=== PATIENT | male | born 1995 | race Caucasian/White ===

== ENCOUNTER 2022-03-28 13:06 | Emergency (ER) | payer BC, SELFPAY ==
[2022-03-28] VITALS (93 sets, daily range): BP systolic 117–181; BP diastolic 55–106; PULSE 69–152; RESP 14–29; TEMP 36.1; O2SAT 95–100; BMI 21.1
--- NOTE | 2022-03-28 13:35 | ED.ABDPAIN ---
HPI - Abdominal Pain <KEVIN Ashford - Last Filed: 03/29/22 20:57> General Chief Complaint: Abdominal Pain Stated Complaint: sharp pain in upper ADB Time Seen by Provider: 03/28/22 13:34 Source: patient Mode of arrival: Ambulatory History of Present Illness HPI narrative: This is a 26-year-old who presents emergency department complaining of sharp pain in his epigastrium and esophagus after eating a chip today. Patient has history of esophageal strictures with dilations x3 in the past, states that it feels like a food bolus and this has happened to him before. He endorses history of drinking caffeine, and alcohol, denies tobacco use or substances other than marijuana. He denies any difficulty breathing, wheezing, shortness of breath or choking sensation. He denies any vomiting, recent fever or chills. States that he vomited x1 2 days ago in the middle of the night and he did not know why. He denies sensation of feeling bad today, states he drank coffee today and had chips with spinach dip and then felt severe pain in his stomach. States that it is still ongoing and his worst symptom. Has not had any vomiting, diarrhea, dysuria, denies cough or congestion. Endorses nausea. Esophageal dilation was approximately 1.5 years ago. Related Data Previous Rx's Medication Instructions Recorded hydrocodone 5 mg-acetaminophen 325 1 tab PO Q4-6H PRN pain #20 tabs 03/29/22 mg tablet ondansetron 4 mg disintegrating 4 mg PO TID-QID PRN nausea and 03/29/22 tablet vomiting #10 tabs Allergies Allergy/AdvReac Type Severity Reaction Status Date / Time No Known Drug Allergies Allergy Verified 03/28/22 13:32 Review of Systems <KEVIN Ashford - Last Filed: 03/29/22 20:57> Review of Systems ROS Unobtainable: All systems reviewed & are unremarkable except as noted in HPI and below Patient History <KEVIN Ashford - Last Filed: 03/29/22 20:57> Social History Smoking Status: Unknown if ever smoked Smoking Status: Unknown if ever smoked alcohol intake frequency: holidays/special occasions only Substance Use Type: does not use Exam <JESUS AshfordP - Last Filed: 03/29/22 20:57> Narrative Exam Narrative: Reviewed vitals signs and nursing notes. General: cooperative, comfortable, in no acute distress, well groomed, patient appears anxious, patient is fidgeting and tapping and occurs uncomfortable HEENT: symmetrical facial expressions, moist mucous membranes, conjunctival injection bilaterally, Cardiovascular: tachycardic rate and regular rhythm, no peripheral edema, warm extremities Respiratory: normal effort, able to speak in complete sentences, without wheezing, stridor, or abnormal breath sounds. No retractions or tachypnea. GI: abdomen soft, complains of pain in his epigastrium, abdomen is nontender to palpation unless deep palpation in the epigastrium , nondistended, without masses, rebound tenderness or exquisite tenderness with exam. Without flank pain MSK: moves all extremities, neurovascularly intact, no weakness, normal tone Skin: brisk capillary refill, without pallor or erythema Neuro: normal speech and cognition, A&O x3, ambulatory, clear speech Psych: mental status is grossly normal, congruent mood, normal affect, pleasant and cooperative Initial Vital Signs Initial Vital Signs: Vital Signs Temperature 96.9 F L 03/28/22 13:28 Pulse Rate 71 03/28/22 13:28 Respiratory Rate 15 03/28/22 13:28 Blood Pressure 147/88 H 03/28/22 13:28 Pulse Oximetry 100 03/28/22 13:28 Oxygen Delivery Method 03/28/22 13:28 <Adair Mims, DO - Last Filed: 03/30/22 05:50> Initial Vital Signs Initial Vital Signs: Vital Signs Temperature 96.9 F L 03/28/22 13:28 Pulse Rate 71 03/28/22 13:28 Respiratory Rate 15 03/28/22 13:28 Blood Pressure 147/88 H 03/28/22 13:28 Pulse Oximetry 100 03/28/22 13:28 Oxygen Delivery Method 03/28/22 13:28 <Ashleigh Mcrae DO - Last Filed: 04/01/22 07:13> Initial Vital Signs Initial Vital Signs: Vital Signs Temperature 96.9 F L 03/28/22 13:28 Pulse Rate 71 03/28/22 13:28 Respiratory Rate 15 03/28/22 13:28 Blood Pressure 147/88 H 03/28/22 13:28 Pulse Oximetry 100 03/28/22 13:28 Oxygen Delivery Method 03/28/22 13:28 Course <KEVIN Ashford - Last Filed: 03/29/22 20:57> Course Course Narrative: Radiologist called about patient's imaging with concern for thickening versus mass at the EG junction with small amount of air visible with no gross mediastinum. States that this is concerning for possible mass or esophageal perforation, phoned Dr. Gurrola for consult. One thousand six hundred Orders Ordered: Discontinued Medications Al Hydrox/Mg Hydrox/Simethicone 20 ml/ Lidocaine HCl 15 ml 0 ml PO NOW ONE Stop: 03/28/22 13:35 Last Admin: 03/28/22 13:47 Dose: 35 ml Documented By: BT Hydromorphone HCl (Hydromorphone 1 Mg Inj) 1 mg IV NOW ONE Stop: 03/28/22 14:30 Last Admin: 03/28/22 15:02 Dose: 1 mg Documented By: RB Hydromorphone HCl (Hydromorphone 0.5 Mg Inj) 0.5 mg IV NOW ONE Stop: 03/28/22 16:00 Last Admin: 03/28/22 16:21 Dose: 0.5 mg Documented By: RB Hydromorphone HCl (Hydromorphone 1 Mg Inj) 1 mg IV NOW ONE Stop: 03/28/22 17:19 Last Admin: 03/28/22 17:24 Dose: 1 mg Documented By: RB Hydromorphone HCl (Hydromorphone 0.5 Mg Inj) 0.5 mg IV NOW ONE Stop: 03/29/22 10:34 Last Admin: 03/29/22 11:05 Dose: 0.5 mg Documented By: KB Sodium Chloride (Normal Saline 0.9%) 1,000 mls @ 1,000 mls/hr IV BOLUS ONE Stop: 03/28/22 15:28 Last Infusion: 03/28/22 17:59 Dose: 0 mls/hr Documented By: Admin: 03/28/22 15:03 Dose: 1,000 mls/hr Documented By: RB Piperacillin Sod/Tazobactam (Sod 4.5 gm/ Sodium Chloride) 100 mls @ 200 mls/hr IV NOW ONE Stop: 03/28/22 16:10 Last Infusion: 03/28/22 17:10 Dose: 0 mls/hr Documented By: Admin: 03/28/22 16:20 Dose: 200 mls/hr Documented By: RB Sodium Chloride (Normal Saline 0.9%) 1,000 mls @ 1,000 mls/hr IV BOLUS ONE Stop: 03/28/22 18:17 Last Infusion: 03/28/22 18:04 Dose: 0 mls/hr Documented By: Infusion: 03/28/22 18:02 Dose: 0 mls/hr Documented By: Admin: 03/28/22 17:28 Dose: 1,000 mls/hr Documented By: RB Lactated Ringer's (Lactated Ringers) 1,000 mls @ 1,000 mls/hr IV BOLUS ONE Stop: 03/28/22 18:42 Last Infusion: 03/28/22 18:45 Dose: 0 mls/hr Documented By: Admin: 03/28/22 18:03 Dose: 1,000 mls/hr Documented By: RB Vancomycin HCl/Dextrose (Vancomycin) 1,500 mg in 300 mls @ 200 mls/hr IV NOW ONE Stop: 03/28/22 19:36 Last Infusion: 03/28/22 20:17 Dose: 0 mls/hr Documented By: Admin: 03/28/22 18:39 Dose: 200 mls/hr Documented By: RB Fluconazole (Diflucan) 200 mg in 100 mls @ 100 mls/hr IV NOW ONE Stop: 03/28/22 19:08 Last Infusion: 03/28/22 20:02 Dose: 0 mls/hr Documented By: Admin: 03/28/22 19:02 Dose: 100 mls/hr Documented By: RB Sodium Chloride (Normal Saline 0.9%) 1,000 mls @ 100 mls/hr IV CONT DANIEL Last Infusion: 03/29/22 13:00 Dose: 0 mls/hr Documented By: Admin: 03/29/22 05:58 Dose: 100 mls/hr Documented By: Infusion: 03/29/22 05:20 Dose: 100 mls/hr Documented By: Admin: 03/28/22 19:20 Dose: 100 mls/hr Documented By: RB Ketorolac Tromethamine (Ketorolac 30 Mg/Ml Vial) 15 mg IV NOW ONE Stop: 03/28/22 15:52 Last Admin: 03/28/22 16:21 Dose: 15 mg Documented By: RB Lorazepam (Lorazepam 2 Mg/Ml Inj) 1 mg IV NOW ONE Stop: 03/28/22 14:00 Last Admin: 03/28/22 15:02 Dose: 1 mg Documented By: RB Lorazepam (Lorazepam 2 Mg/Ml Inj) 1 mg IV NOW ONE Stop: 03/28/22 17:51 Last Admin: 03/28/22 17:58 Dose: 1 mg Documented By: RB Ondansetron HCl (Ondansetron 4 Mg/2 Ml Inj) 4 mg IV NOW ONE Stop: 03/28/22 15:20 Last Admin: 03/28/22 15:30 Dose: 4 mg Documented By: RB Ondansetron HCl (Ondansetron 4 Mg/2 Ml Inj) 4 mg IV NOW ONE Stop: 03/29/22 10:34 Last Admin: 03/29/22 11:05 Dose: 4 mg Documented By: RAFAEL Pantoprazole Sodium (Pantoprazole 40 Mg Vial) 40 mg IV NOW ONE Stop: 03/28/22 14:00 Last Admin: 03/28/22 15:02 Dose: 40 mg Documented By: RB Reevaluation(s) Reevaluation #1: Checked on patient after he received the GI cocktail and p.o. Ativan, patient states he has no relief from his discomfort, is fidgeting, telling staff having severe pain. Dilaudid, IV fluids IV placement with lab work being drawn currently. Ultrasound room at bedside for evaluation. Patient is not choking, no difficulty breathing, no vomiting. Time: 14:30 Reevaluation #2: Patient has nausea, ordered Zofran, states that his pain is starting to feel better after Dilaudid, IV fluids running, patient has a marked leukocytosis of 15.2 with a left shift, lactate of 2.2, lipase is normal and liver enzymes are normal. Time: :22 Vital Signs Vital signs: Vital Signs - 8 hr 03/29/22 04:40 03/29/22 04:40 03/29/22 04:50 Pulse Rate 90 Respiratory Rate 21 Blood Pressure 125/64 103/53 L Pulse Oximetry 95 Oxygen Delivery Method 03/29/22 04:50 03/29/22 05:00 03/29/22 05:00 Pulse Rate 89 88 Respiratory Rate 19 20 Blood Pressure 97/53 L Pulse Oximetry 96 96 Oxygen Delivery Method 03/29/22 05:10 03/29/22 05:10 03/29/22 05:15 Pulse Rate 97 H Respiratory Rate 21 Blood Pressure 97/50 L 115/59 L Pulse Oximetry 96 Oxygen Delivery Method 03/29/22 05:15 03/29/22 05:20 03/29/22 05:20 Pulse Rate 91 H 92 H Respiratory Rate 20 13 Blood Pressure 118/60 Pulse Oximetry 97 96 Oxygen Delivery Method 03/29/22 05:30 03/29/22 05:30 03/29/22 05:40 Pulse Rate 85 Respiratory Rate 11 L Blood Pressure 121/60 124/60 Pulse Oximetry 96 Oxygen Delivery Method 03/29/22 05:40 03/29/22 05:50 03/29/22 05:50 Pulse Rate 84 86 Respiratory Rate 19 20 Blood Pressure 123/59 L Pulse Oximetry 97 96 Oxygen Delivery Method 03/29/22 06:00 03/29/22 06:00 03/29/22 06:10 Pulse Rate 81 Respiratory Rate 16 Blood Pressure 117/62 123/61 Pulse Oximetry 96 Oxygen Delivery Method 03/29/22 06:10 03/29/22 06:20 03/29/22 06:20 Pulse Rate 85 85 Respiratory Rate 20 21 Blood Pressure 122/63 Pulse Oximetry 96 96 Oxygen Delivery Method 03/29/22 06:30 03/29/22 06:30 03/29/22 06:40 Pulse Rate 83 94 H Respiratory Rate 21 17 Blood Pressure 118/61 Pulse Oximetry 96 97 Oxygen Delivery Method 03/29/22 06:41 03/29/22 06:41 03/29/22 06:50 Pulse Rate 79 Respiratory Rate 18 Blood Pressure 129/60 119/59 L Pulse Oximetry 97 Oxygen Delivery Method 03/29/22 06:50 03/29/22 07:00 03/29/22 07:00 Pulse Rate 79 81 Respiratory Rate 22 20 Blood Pressure 118/59 L Pulse Oximetry 96 96 Oxygen Delivery Method 03/29/22 07:10 03/29/22 07:10 03/29/22 07:20 Pulse Rate 98 H Respiratory Rate 20 Blood Pressure 125/57 L 122/56 L Pulse Oximetry 97 Oxygen Delivery Method 03/29/22 07:20 03/29/22 07:30 03/29/22 07:30 Pulse Rate 92 H 84 Respiratory Rate 19 18 Blood Pressure 127/60 Pulse Oximetry 96 97 Oxygen Delivery Method 03/29/22 07:40 03/29/22 07:40 03/29/22 07:50 Pulse Rate 82 Respiratory Rate 20 Blood Pressure 123/59 L 125/58 L Pulse Oximetry 97 Oxygen Delivery Method 03/29/22 07:50 03/29/22 08:00 03/29/22 08:00 Pulse Rate 79 80 Respiratory Rate 20 19 Blood Pressure 126/57 L Pulse Oximetry 97 97 Oxygen Delivery Method 03/29/22 08:10 03/29/22 08:10 03/29/22 08:20 Pulse Rate 81 90 Respiratory Rate 19 21 Blood Pressure 128/58 L Pulse Oximetry 97 98 Oxygen Delivery Method 03/29/22 08:40 03/29/22 08:50 03/29/22 09:00 Pulse Rate 87 95 H Respiratory Rate 20 Blood Pressure 126/70 Pulse Oximetry 97 97 Oxygen Delivery Method 03/29/22 09:00 03/29/22 09:10 03/29/22 09:10 Pulse Rate 88 91 H Respiratory Rate 19 23 Blood Pressure 124/72 Pulse Oximetry 97 96 Oxygen Delivery Method 03/29/22 09:20 03/29/22 09:20 03/29/22 09:30 Pulse Rate 88 Respiratory Rate 21 Blood Pressure 126/68 125/72 Pulse Oximetry 97 Oxygen Delivery Method 03/29/22 09:30 03/29/22 09:40 03/29/22 09:40 Pulse Rate 88 85 Respiratory Rate 22 25 H Blood Pressure 123/69 Pulse Oximetry 96 97 Oxygen Delivery Method 03/29/22 09:50 03/29/22 09:50 03/29/22 10:00 Pulse Rate 83 Respiratory Rate 20 Blood Pressure 130/69 119/66 Pulse Oximetry 96 Oxygen Delivery Method 03/29/22 10:00 03/29/22 10:10 03/29/22 10:10 Pulse Rate 84 89 Respiratory Rate 21 21 Blood Pressure 121/65 Pulse Oximetry 96 97 Oxygen Delivery Method 03/29/22 10:20 03/29/22 10:20 03/29/22 10:30 Pulse Rate 78 Respiratory Rate 21 Blood Pressure 121/65 119/71 Pulse Oximetry 98 Oxygen Delivery Method 03/29/22 10:30 03/29/22 10:40 03/29/22 10:40 Pulse Rate 86 85 Respiratory Rate 20 23 Blood Pressure 127/77 Pulse Oximetry 97 97 Oxygen Delivery Method 03/29/22 10:50 03/29/22 10:50 03/29/22 11:00 Pulse Rate 84 Respiratory Rate 26 H Blood Pressure 127/69 124/61 Pulse Oximetry 97 Oxygen Delivery Method 03/29/22 11:00 03/29/22 11:10 03/29/22 11:10 Pulse Rate 84 88 Respiratory Rate 17 18 Blood Pressure 126/70 Pulse Oximetry 96 96 Oxygen Delivery Method 03/29/22 11:20 03/29/22 11:20 03/29/22 11:30 Pulse Rate 82 Respiratory Rate 13 Blood Pressure 128/63 121/60 Pulse Oximetry 96 Oxygen Delivery Method Room Air 03/29/22 11:30 03/29/22 11:40 03/29/22 11:40 Pulse Rate 81 82 Respiratory Rate 18 17 Blood Pressure 114/59 L Pulse Oximetry 96 95 Oxygen Delivery Method Room Air 03/29/22 11:50 03/29/22 11:50 Pulse Rate 79 Respiratory Rate 16 Blood Pressure 119/60 Pulse Oximetry 96 Oxygen Delivery Method <Adair Mims DO - Last Filed: 03/30/22 05:50> Orders Ordered: Discontinued Medications Al Hydrox/Mg Hydrox/Simethicone 20 ml/ Lidocaine HCl 15 ml 0 ml PO NOW ONE Stop: 03/28/22 13:35 Last Admin: 03/28/22 13:47 Dose: 35 ml Documented By: BT Hydromorphone HCl (Hydromorphone 1 Mg Inj) 1 mg IV NOW ONE Stop: 03/28/22 14:30 Last Admin: 03/28/22 15:02 Dose: 1 mg Documented By: RB Hydromorphone HCl (Hydromorphone 0.5 Mg Inj) 0.5 mg IV NOW ONE Stop: 03/28/22 16:00 Last Admin: 03/28/22 16:21 Dose: 0.5 mg Documented By: RB Hydromorphone HCl (Hydromorphone 1 Mg Inj) 1 mg IV NOW ONE Stop: 03/28/22 17:19 Last Admin: 03/28/22 17:24 Dose: 1 mg Documented By: RB Hydromorphone HCl (Hydromorphone 0.5 Mg Inj) 0.5 mg IV NOW ONE Stop: 03/29/22 10:34 Last Admin: 03/29/22 11:05 Dose: 0.5 mg Documented By: RAFAEL Sodium Chloride (Normal Saline 0.9%) 1,000 mls @ 1,000 mls/hr IV BOLUS ONE Stop: 03/28/22 15:28 Last Infusion: 03/28/22 17:59 Dose: 0 mls/hr Documented By: Admin: 03/28/22 15:03 Dose: 1,000 mls/hr Documented By: RB Piperacillin Sod/Tazobactam (Sod 4.5 gm/ Sodium Chloride) 100 mls @ 200 mls/hr IV NOW ONE Stop: 03/28/22 16:10 Last Infusion: 03/28/22 17:10 Dose: 0 mls/hr Documented By: Admin: 03/28/22 16:20 Dose: 200 mls/hr Documented By: RB Sodium Chloride (Normal Saline 0.9%) 1,000 mls @ 1,000 mls/hr IV BOLUS ONE Stop: 03/28/22 18:17 Last Infusion: 03/28/22 18:04 Dose: 0 mls/hr Documented By: Infusion: 03/28/22 18:02 Dose: 0 mls/hr Documented By: Admin: 03/28/22 17:28 Dose: 1,000 mls/hr Documented By: RB Lactated Ringer's (Lactated Ringers) 1,000 mls @ 1,000 mls/hr IV BOLUS ONE Stop: 03/28/22 18:42 Last Infusion: 03/28/22 18:45 Dose: 0 mls/hr Documented By: Admin: 03/28/22 18:03 Dose: 1,000 mls/hr Documented By: RB Vancomycin HCl/Dextrose (Vancomycin) 1,500 mg in 300 mls @ 200 mls/hr IV NOW ONE Stop: 03/28/22 19:36 Last Infusion: 03/28/22 20:17 Dose: 0 mls/hr Documented By: Admin: 03/28/22 18:39 Dose: 200 mls/hr Documented By: RB Fluconazole (Diflucan) 200 mg in 100 mls @ 100 mls/hr IV NOW ONE Stop: 03/28/22 19:08 Last Infusion: 03/28/22 20:02 Dose: 0 mls/hr Documented By: Admin: 03/28/22 19:02 Dose: 100 mls/hr Documented By: EVITA Sodium Chloride (Normal Saline 0.9%) 1,000 mls @ 100 mls/hr IV CONT DANIEL Last Infusion: 03/29/22 13:00 Dose: 0 mls/hr Documented By: Admin: 03/29/22 05:58 Dose: 100 mls/hr Documented By: Infusion: 03/29/22 05:20 Dose: 100 mls/hr Documented By: Admin: 03/28/22 19:20 Dose: 100 mls/hr Documented By: EVITA Ketorolac Tromethamine (Ketorolac 30 Mg/Ml Vial) 15 mg IV NOW ONE Stop: 03/28/22 15:52 Last Admin: 03/28/22 16:21 Dose: 15 mg Documented By: RB Lorazepam (Lorazepam 2 Mg/Ml Inj) 1 mg IV NOW ONE Stop: 03/28/22 14:00 Last Admin: 03/28/22 15:02 Dose: 1 mg Documented By: RB Lorazepam (Lorazepam 2 Mg/Ml Inj) 1 mg IV NOW ONE Stop: 03/28/22 17:51 Last Admin: 03/28/22 17:58 Dose: 1 mg Documented By: RB Ondansetron HCl (Ondansetron 4 Mg/2 Ml Inj) 4 mg IV NOW ONE Stop: 03/28/22 15:20 Last Admin: 03/28/22 15:30 Dose: 4 mg Documented By: EVITA Ondansetron HCl (Ondansetron 4 Mg/2 Ml Inj) 4 mg IV NOW ONE Stop: 03/29/22 10:34 Last Admin: 03/29/22 11:05 Dose: 4 mg Documented By: RAFAEL Pantoprazole Sodium (Pantoprazole 40 Mg Vial) 40 mg IV NOW ONE Stop: 03/28/22 14:00 Last Admin: 03/28/22 15:02 Dose: 40 mg Documented By: RB Vital Signs Vital signs: Vital Signs - 8 hr 03/29/22 04:40 03/29/22 04:40 03/29/22 04:50 Pulse Rate 90 Respiratory Rate 21 Blood Pressure 125/64 103/53 L Pulse Oximetry 95 Oxygen Delivery Method 03/29/22 04:50 03/29/22 05:00 03/29/22 05:00 Pulse Rate 89 88 Respiratory Rate 19 20 Blood Pressure 97/53 L Pulse Oximetry 96 96 Oxygen Delivery Method 03/29/22 05:10 03/29/22 05:10 03/29/22 05:15 Pulse Rate 97 H Respiratory Rate 21 Blood Pressure 97/50 L 115/59 L Pulse Oximetry 96 Oxygen Delivery Method 03/29/22 05:15 03/29/22 05:20 03/29/22 05:20 Pulse Rate 91 H 92 H Respiratory Rate 20 13 Blood Pressure 118/60 Pulse Oximetry 97 96 Oxygen Delivery Method 03/29/22 05:30 03/29/22 05:30 03/29/22 05:40 Pulse Rate 85 Respiratory Rate 11 L Blood Pressure 121/60 124/60 Pulse Oximetry 96 Oxygen Delivery Method 03/29/22 05:40 03/29/22 05:50 03/29/22 05:50 Pulse Rate 84 86 Respiratory Rate 19 20 Blood Pressure 123/59 L Pulse Oximetry 97 96 Oxygen Delivery Method 03/29/22 06:00 03/29/22 06:00 03/29/22 06:10 Pulse Rate 81 Respiratory Rate 16 Blood Pressure 117/62 123/61 Pulse Oximetry 96 Oxygen Delivery Method 03/29/22 06:10 03/29/22 06:20 03/29/22 06:20 Pulse Rate 85 85 Respiratory Rate 20 21 Blood Pressure 122/63 Pulse Oximetry 96 96 Oxygen Delivery Method 03/29/22 06:30 03/29/22 06:30 03/29/22 06:40 Pulse Rate 83 94 H Respiratory Rate 21 17 Blood Pressure 118/61 Pulse Oximetry 96 97 Oxygen Delivery Method 03/29/22 06:41 03/29/22 06:41 03/29/22 06:50 Pulse Rate 79 Respiratory Rate 18 Blood Pressure 129/60 119/59 L Pulse Oximetry 97 Oxygen Delivery Method 03/29/22 06:50 03/29/22 07:00 03/29/22 07:00 Pulse Rate 79 81 Respiratory Rate 22 20 Blood Pressure 118/59 L Pulse Oximetry 96 96 Oxygen Delivery Method 03/29/22 07:10 03/29/22 07:10 03/29/22 07:20 Pulse Rate 98 H Respiratory Rate 20 Blood Pressure 125/57 L 122/56 L Pulse Oximetry 97 Oxygen Delivery Method 03/29/22 07:20 03/29/22 07:30 03/29/22 07:30 Pulse Rate 92 H 84 Respiratory Rate 19 18 Blood Pressure 127/60 Pulse Oximetry 96 97 Oxygen Delivery Method 03/29/22 07:40 03/29/22 07:40 03/29/22 07:50 Pulse Rate 82 Respiratory Rate 20 Blood Pressure 123/59 L 125/58 L Pulse Oximetry 97 Oxygen Delivery Method 03/29/22 07:50 03/29/22 08:00 03/29/22 08:00 Pulse Rate 79 80 Respiratory Rate 20 19 Blood Pressure 126/57 L Pulse Oximetry 97 97 Oxygen Delivery Method 03/29/22 08:10 03/29/22 08:10 03/29/22 08:20 Pulse Rate 81 90 Respiratory Rate 19 21 Blood Pressure 128/58 L Pulse Oximetry 97 98 Oxygen Delivery Method 03/29/22 08:40 03/29/22 08:50 03/29/22 09:00 Pulse Rate 87 95 H Respiratory Rate 20 Blood Pressure 126/70 Pulse Oximetry 97 97 Oxygen Delivery Method 03/29/22 09:00 03/29/22 09:10 03/29/22 09:10 Pulse Rate 88 91 H Respiratory Rate 19 23 Blood Pressure 124/72 Pulse Oximetry 97 96 Oxygen Delivery Method 03/29/22 09:20 03/29/22 09:20 03/29/22 09:30 Pulse Rate 88 Respiratory Rate 21 Blood Pressure 126/68 125/72 Pulse Oximetry 97 Oxygen Delivery Method 03/29/22 09:30 03/29/22 09:40 03/29/22 09:40 Pulse Rate 88 85 Respiratory Rate 22 25 H Blood Pressure 123/69 Pulse Oximetry 96 97 Oxygen Delivery Method 03/29/22 09:50 03/29/22 09:50 03/29/22 10:00 Pulse Rate 83 Respiratory Rate 20 Blood Pressure 130/69 119/66 Pulse Oximetry 96 Oxygen Delivery Method 03/29/22 10:00 03/29/22 10:10 03/29/22 10:10 Pulse Rate 84 89 Respiratory Rate 21 21 Blood Pressure 121/65 Pulse Oximetry 96 97 Oxygen Delivery Method 03/29/22 10:20 03/29/22 10:20 03/29/22 10:30 Pulse Rate 78 Respiratory Rate 21 Blood Pressure 121/65 119/71 Pulse Oximetry 98 Oxygen Delivery Method 03/29/22 10:30 03/29/22 10:40 03/29/22 10:40 Pulse Rate 86 85 Respiratory Rate 20 23 Blood Pressure 127/77 Pulse Oximetry 97 97 Oxygen Delivery Method 03/29/22 10:50 03/29/22 10:50 03/29/22 11:00 Pulse Rate 84 Respiratory Rate 26 H Blood Pressure 127/69 124/61 Pulse Oximetry 97 Oxygen Delivery Method 03/29/22 11:00 03/29/22 11:10 03/29/22 11:10 Pulse Rate 84 88 Respiratory Rate 17 18 Blood Pressure 126/70 Pulse Oximetry 96 96 Oxygen Delivery Method 03/29/22 11:20 03/29/22 11:20 03/29/22 11:30 Pulse Rate 82 Respiratory Rate 13 Blood Pressure 128/63 121/60 Pulse Oximetry 96 Oxygen Delivery Method Room Air 03/29/22 11:30 03/29/22 11:40 03/29/22 11:40 Pulse Rate 81 82 Respiratory Rate 18 17 Blood Pressure 114/59 L Pulse Oximetry 96 95 Oxygen Delivery Method Room Air 03/29/22 11:50 03/29/22 11:50 Pulse Rate 79 Respiratory Rate 16 Blood Pressure 119/60 Pulse Oximetry 96 Oxygen Delivery Method <Ashleigh Mcrae, - Last Filed: 04/01/22 07:13> Orders Ordered: Discontinued Medications Al Hydrox/Mg Hydrox/Simethicone 20 ml/ Lidocaine HCl 15 ml 0 ml PO NOW ONE Stop: 03/28/22 13:35 Last Admin: 03/28/22 13:47 Dose: 35 ml Documented By: BT Hydromorphone HCl (Hydromorphone 1 Mg Inj) 1 mg IV NOW ONE Stop: 03/28/22 14:30 Last Admin: 03/28/22 15:02 Dose: 1 mg Documented By: RB Hydromorphone HCl (Hydromorphone 0.5 Mg Inj) 0.5 mg IV NOW ONE Stop: 03/28/22 16:00 Last Admin: 03/28/22 16:21 Dose: 0.5 mg Documented By: RB Hydromorphone HCl (Hydromorphone 1 Mg Inj) 1 mg IV NOW ONE Stop: 03/28/22 17:19 Last Admin: 03/28/22 17:24 Dose: 1 mg Documented By: RB Hydromorphone HCl (Hydromorphone 0.5 Mg Inj) 0.5 mg IV NOW ONE Stop: 03/29/22 10:34 Last Admin: 03/29/22 11:05 Dose: 0.5 mg Documented By: RAFAEL Sodium Chloride (Normal Saline 0.9%) 1,000 mls @ 1,000 mls/hr IV BOLUS ONE Stop: 03/28/22 15:28 Last Infusion: 03/28/22 17:59 Dose: 0 mls/hr Documented By: Admin: 03/28/22 15:03 Dose: 1,000 mls/hr Documented By: RB Piperacillin Sod/Tazobactam (Sod 4.5 gm/ Sodium Chloride) 100 mls @ 200 mls/hr IV NOW ONE Stop: 03/28/22 16:10 Last Infusion: 03/28/22 17:10 Dose: 0 mls/hr Documented By: Admin: 03/28/22 16:20 Dose: 200 mls/hr Documented By: RB Sodium Chloride (Normal Saline 0.9%) 1,000 mls @ 1,000 mls/hr IV BOLUS ONE Stop: 03/28/22 18:17 Last Infusion: 03/28/22 18:04 Dose: 0 mls/hr Documented By: Infusion: 03/28/22 18:02 Dose: 0 mls/hr Documented By: Admin: 03/28/22 17:28 Dose: 1,000 mls/hr Documented By: RB Lactated Ringer's (Lactated Ringers) 1,000 mls @ 1,000 mls/hr IV BOLUS ONE Stop: 03/28/22 18:42 Last Infusion: 03/28/22 18:45 Dose: 0 mls/hr Documented By: Admin: 03/28/22 18:03 Dose: 1,000 mls/hr Documented By: RB Vancomycin HCl/Dextrose (Vancomycin) 1,500 mg in 300 mls @ 200 mls/hr IV NOW ONE Stop: 03/28/22 19:36 Last Infusion: 03/28/22 20:17 Dose: 0 mls/hr Documented By: Admin: 03/28/22 18:39 Dose: 200 mls/hr Documented By: RB Fluconazole (Diflucan) 200 mg in 100 mls @ 100 mls/hr IV NOW ONE Stop: 03/28/22 19:08 Last Infusion: 03/28/22 20:02 Dose: 0 mls/hr Documented By: Admin: 03/28/22 19:02 Dose: 100 mls/hr Documented By: RB Sodium Chloride (Normal Saline 0.9%) 1,000 mls @ 100 mls/hr IV CONT DANIEL Last Infusion: 03/29/22 13:00 Dose: 0 mls/hr Documented By: Admin: 03/29/22 05:58 Dose: 100 mls/hr Documented By: Infusion: 03/29/22 05:20 Dose: 100 mls/hr Documented By: Admin: 03/28/22 19:20 Dose: 100 mls/hr Documented By: RB Ketorolac Tromethamine (Ketorolac 30 Mg/Ml Vial) 15 mg IV NOW ONE Stop: 03/28/22 15:52 Last Admin: 03/28/22 16:21 Dose: 15 mg Documented By: RB Lorazepam (Lorazepam 2 Mg/Ml Inj) 1 mg IV NOW ONE Stop: 03/28/22 14:00 Last Admin: 03/28/22 15:02 Dose: 1 mg Documented By: RB Lorazepam (Lorazepam 2 Mg/Ml Inj) 1 mg IV NOW ONE Stop: 03/28/22 17:51 Last Admin: 03/28/22 17:58 Dose: 1 mg Documented By: RB Ondansetron HCl (Ondansetron 4 Mg/2 Ml Inj) 4 mg IV NOW ONE Stop: 03/28/22 15:20 Last Admin: 03/28/22 15:30 Dose: 4 mg Documented By: RB Ondansetron HCl (Ondansetron 4 Mg/2 Ml Inj) 4 mg IV NOW ONE Stop: 03/29/22 10:34 Last Admin: 03/29/22 11:05 Dose: 4 mg Documented By: RAFAEL Pantoprazole Sodium (Pantoprazole 40 Mg Vial) 40 mg IV NOW ONE Stop: 03/28/22 14:00 Last Admin: 03/28/22 15:02 Dose: 40 mg Documented By: RB Vital Signs Vital signs: Vital Signs - 8 hr 03/29/22 04:40 03/29/22 04:40 03/29/22 04:50 Pulse Rate 90 Respiratory Rate 21 Blood Pressure 125/64 103/53 L Pulse Oximetry 95 Oxygen Delivery Method 03/29/22 04:50 03/29/22 05:00 03/29/22 05:00 Pulse Rate 89 88 Respiratory Rate 19 20 Blood Pressure 97/53 L Pulse Oximetry 96 96 Oxygen Delivery Method 03/29/22 05:10 03/29/22 05:10 03/29/22 05:15 Pulse Rate 97 H Respiratory Rate 21 Blood Pressure 97/50 L 115/59 L Pulse Oximetry 96 Oxygen Delivery Method 03/29/22 05:15 03/29/22 05:20 03/29/22 05:20 Pulse Rate 91 H 92 H Respiratory Rate 20 13 Blood Pressure 118/60 Pulse Oximetry 97 96 Oxygen Delivery Method 03/29/22 05:30 03/29/22 05:30 03/29/22 05:40 Pulse Rate 85 Respiratory Rate 11 L Blood Pressure 121/60 124/60 Pulse Oximetry 96 Oxygen Delivery Method 03/29/22 05:40 03/29/22 05:50 03/29/22 05:50 Pulse Rate 84 86 Respiratory Rate 19 20 Blood Pressure 123/59 L Pulse Oximetry 97 96 Oxygen Delivery Method 03/29/22 06:00 03/29/22 06:00 03/29/22 06:10 Pulse Rate 81 Respiratory Rate 16 Blood Pressure 117/62 123/61 Pulse Oximetry 96 Oxygen Delivery Method 03/29/22 06:10 03/29/22 06:20 03/29/22 06:20 Pulse Rate 85 85 Respiratory Rate 20 21 Blood Pressure 122/63 Pulse Oximetry 96 96 Oxygen Delivery Method 03/29/22 06:30 03/29/22 06:30 03/29/22 06:40 Pulse Rate 83 94 H Respiratory Rate 21 17 Blood Pressure 118/61 Pulse Oximetry 96 97 Oxygen Delivery Method 03/29/22 06:41 03/29/22 06:41 03/29/22 06:50 Pulse Rate 79 Respiratory Rate 18 Blood Pressure 129/60 119/59 L Pulse Oximetry 97 Oxygen Delivery Method 03/29/22 06:50 03/29/22 07:00 03/29/22 07:00 Pulse Rate 79 81 Respiratory Rate 22 20 Blood Pressure 118/59 L Pulse Oximetry 96 96 Oxygen Delivery Method 03/29/22 07:10 03/29/22 07:10 03/29/22 07:20 Pulse Rate 98 H Respiratory Rate 20 Blood Pressure 125/57 L 122/56 L Pulse Oximetry 97 Oxygen Delivery Method 03/29/22 07:20 03/29/22 07:30 03/29/22 07:30 Pulse Rate 92 H 84 Respiratory Rate 19 18 Blood Pressure 127/60 Pulse Oximetry 96 97 Oxygen Delivery Method 03/29/22 07:40 03/29/22 07:40 03/29/22 07:50 Pulse Rate 82 Respiratory Rate 20 Blood Pressure 123/59 L 125/58 L Pulse Oximetry 97 Oxygen Delivery Method 03/29/22 07:50 03/29/22 08:00 03/29/22 08:00 Pulse Rate 79 80 Respiratory Rate 20 19 Blood Pressure 126/57 L Pulse Oximetry 97 97 Oxygen Delivery Method 03/29/22 08:10 03/29/22 08:10 03/29/22 08:20 Pulse Rate 81 90 Respiratory Rate 19 21 Blood Pressure 128/58 L Pulse Oximetry 97 98 Oxygen Delivery Method 03/29/22 08:40 03/29/22 08:50 03/29/22 09:00 Pulse Rate 87 95 H Respiratory Rate 20 Blood Pressure 126/70 Pulse Oximetry 97 97 Oxygen Delivery Method 03/29/22 09:00 03/29/22 09:10 03/29/22 09:10 Pulse Rate 88 91 H Respiratory Rate 19 23 Blood Pressure 124/72 Pulse Oximetry 97 96 Oxygen Delivery Method 03/29/22 09:20 03/29/22 09:20 03/29/22 09:30 Pulse Rate 88 Respiratory Rate 21 Blood Pressure 126/68 125/72 Pulse Oximetry 97 Oxygen Delivery Method 03/29/22 09:30 03/29/22 09:40 03/29/22 09:40 Pulse Rate 88 85 Respiratory Rate 22 25 H Blood Pressure 123/69 Pulse Oximetry 96 97 Oxygen Delivery Method 03/29/22 09:50 03/29/22 09:50 03/29/22 10:00 Pulse Rate 83 Respiratory Rate 20 Blood Pressure 130/69 119/66 Pulse Oximetry 96 Oxygen Delivery Method 03/29/22 10:00 03/29/22 10:10 03/29/22 10:10 Pulse Rate 84 89 Respiratory Rate 21 21 Blood Pressure 121/65 Pulse Oximetry 96 97 Oxygen Delivery Method 03/29/22 10:20 03/29/22 10:20 03/29/22 10:30 Pulse Rate 78 Respiratory Rate 21 Blood Pressure 121/65 119/71 Pulse Oximetry 98 Oxygen Delivery Method 03/29/22 10:30 03/29/22 10:40 03/29/22 10:40 Pulse Rate 86 85 Respiratory Rate 20 23 Blood Pressure 127/77 Pulse Oximetry 97 97 Oxygen Delivery Method 03/29/22 10:50 03/29/22 10:50 03/29/22 11:00 Pulse Rate 84 Respiratory Rate 26 H Blood Pressure 127/69 124/61 Pulse Oximetry 97 Oxygen Delivery Method 03/29/22 11:00 03/29/22 11:10 03/29/22 11:10 Pulse Rate 84 88 Respiratory Rate 17 18 Blood Pressure 126/70 Pulse Oximetry 96 96 Oxygen Delivery Method 03/29/22 11:20 03/29/22 11:20 03/29/22 11:30 Pulse Rate 82 Respiratory Rate 13 Blood Pressure 128/63 121/60 Pulse Oximetry 96 Oxygen Delivery Method Room Air 03/29/22 11:30 03/29/22 11:40 03/29/22 11:40 Pulse Rate 81 82 Respiratory Rate 18 17 Blood Pressure 114/59 L Pulse Oximetry 96 95 Oxygen Delivery Method Room Air 03/29/22 11:50 03/29/22 11:50 Pulse Rate 79 Respiratory Rate 16 Blood Pressure 119/60 Pulse Oximetry 96 Oxygen Delivery Method MDM - Abdominal Pain <Dominga Lima [facility] - Last Filed: 03/29/22 20:57> Lab Data Result diagrams: 03/28/22 18:15 03/28/22 18:15 Labs: Lab Results 03/28/22 03/28/22 03/28/22 Range/Units 11:45 11:45 11:45 WBC 15.2 H (4.5-11.0) X10^3/uL RBC 5.72 (4.5-5.9) X10^6/uL Hgb 16.9 (13.5-17.5) g/dL Hct 49.4 (41-53) % MCV 86.4 (80-100) fL MCH 29.5 (26-34) PG MCHC 34.2 (30-36) % RDW 13.3 (11.6-14.8) % Plt Count 246 (150-400) X10^3/uL Neut % (Auto) 82.2 H (50-75) % Lymph % (Auto) 9.4 L (25-40) % [place] % (Auto) 7.1 (3-14) % Eos % (Auto) 0.9 L (2-4) % Baso % (Auto) 0.4 (0-2) % Neut # (Auto) 57131 H (8972-5052) /uL Lymph # (Auto) 1400 (7226-4697) /uL [place] # (Auto) 1100 H (0-900) /uL Eos # (Auto) 100 (0-450) /uL Baso # (Auto) 100 (0-100) /uL Sodium 139 (137-145) mmol/L Potassium 3.8 (3.4-5.1) mmol/L Chloride 98 (98-107) mmol/L Carbon Dioxide 30 (22-32) mmol/L BUN 11 (9-20) mg/dL Creatinine 0.78 (0.66-1.25) mg/dL Estimated GFR > 60 (>60) mL/min BUN/Creatinine Ratio 14.1 (6-22) Glucose 118 H (70-100) mg/dL Lactate 2.2 H (0.7-2.1) mmol/L Calcium 9.4 (8.4-10.2) mg/dL Total Bilirubin 0.4 (0.2-1.3) mg/dL AST 33 (17-59) IU/L ALT 37 (<50) IU/L Alkaline Phosphatase 81 (38-126) U/L Total Creatine Kinase (55-170) U/L CK-MB (CK-2) (<2.37) ng/mL CK-MB (CK-2) Rel Index (1.5-5.0) % Troponin I (0.01-0.034) ng/mL NT-Pro-B Natriuret Pep (<125) pg/mL Total Protein 8.1 (6.3-8.2) g/dL Albumin 4.7 (3.5-5.0) g/dL Globulin 3.4 (1.7-4.1) g/dL Albumin/Globulin Ratio 1.4 (1.0-2.8) Lipase 45 (23-300) U/L U Opiates 300ng/mL cut (Negative) Ur Oxycodone Screen (Negative) Urine Methadone Screen (Negative) Ur Barbiturates Screen (Negative) U Tricyclic Antidepress (Negative) Ur Phencyclidine Scrn (Negative) Ur Amphetamines Screen (Negative) U Methamphetamines Scrn (Negative) Ur MDMA Scrn (Ecstasy) (Negative) U Benzodiazepines Scrn (Negative) Urine Cocaine Screen (Negative) U Marijuana (THC) Screen (Negative) SARS-CoV-2 (PCR) (Negative) Influenza A (RT-PCR) (NEGATIVE) Influenza B (RT-PCR) (NEGATIVE) RSV (PCR) (Negative) 03/28/22 03/28/22 03/28/22 Range/Units 15:26 17:11 18:15 WBC (4.5-11.0) X10^3/uL RBC (4.5-5.9) X10^6/uL Hgb (13.5-17.5) g/dL Hct (41-53) % MCV (80-100) fL MCH (26-34) PG MCHC (30-36) % RDW (11.6-14.8) % Plt Count (150-400) X10^3/uL Neut % (Auto) (50-75) % Lymph % (Auto) (25-40) % [place] % (Auto) (3-14) % Eos % (Auto) (2-4) % Baso % (Auto) (0-2) % Neut # (Auto) (8715-7198) /uL Lymph # (Auto) (5334-0464) /uL [place] # (Auto) (0-900) /uL Eos # (Auto) (0-450) /uL Baso # (Auto) (0-100) /uL Sodium (137-145) mmol/L Potassium (3.4-5.1) mmol/L Chloride (98-107) mmol/L Carbon Dioxide (22-32) mmol/L BUN (9-20) mg/dL Creatinine (0.66-1.25) mg/dL Estimated GFR (>60) mL/min BUN/Creatinine Ratio (6-22) Glucose (70-100) mg/dL Lactate 2.1 (0.7-2.1) mmol/L Calcium (8.4-10.2) mg/dL Total Bilirubin (0.2-1.3) mg/dL AST (17-59) IU/L ALT (<50) IU/L Alkaline Phosphatase (38-126) U/L Total Creatine Kinase (55-170) U/L CK-MB (CK-2) (<2.37) ng/mL CK-MB (CK-2) Rel Index (1.5-5.0) % Troponin I (0.01-0.034) ng/mL NT-Pro-B Natriuret Pep (<125) pg/mL Total Protein (6.3-8.2) g/dL Albumin (3.5-5.0) g/dL Globulin (1.7-4.1) g/dL Albumin/Globulin Ratio (1.0-2.8) Lipase (23-300) U/L U Opiates 300ng/mL cut Negative (Negative) Ur Oxycodone Screen Negative (Negative) Urine Methadone Screen Negative (Negative) Ur Barbiturates Screen Negative (Negative) U Tricyclic Antidepress Negative (Negative) Ur Phencyclidine Scrn Negative (Negative) Ur Amphetamines Screen Negative (Negative) U Methamphetamines Scrn Negative (Negative) Ur MDMA Scrn (Ecstasy) Negative (Negative) U Benzodiazepines Scrn Negative (Negative) Urine Cocaine Screen Negative (Negative) U Marijuana (THC) Screen Negative (Negative) SARS-CoV-2 (PCR) Negative (Negative) Influenza A (RT-PCR) Flu a negative (NEGATIVE) Influenza B (RT-PCR) Flu b negative (NEGATIVE) RSV (PCR) Negative (Negative) 03/28/22 03/28/22 03/28/22 Range/Units 18:15 18:15 18:15 WBC 14.1 H (4.5-11.0) X10^3/uL RBC 5.32 (4.5-5.9) X10^6/uL Hgb 15.9 (13.5-17.5) g/dL Hct 45.9 (41-53) % MCV 86.2 (80-100) fL MCH 29.9 (26-34) PG MCHC 34.7 (30-36) % RDW 13.3 (11.6-14.8) % Plt Count 222 (150-400) X10^3/uL Neut % (Auto) 88.6 H (50-75) % Lymph % (Auto) 4.7 L (25-40) % [place] % (Auto) 6.5 (3-14) % Eos % (Auto) 0.1 L (2-4) % Baso % (Auto) 0.1 (0-2) % Neut # (Auto) 13586 H (4825-4864) /uL Lymph # (Auto) 700 L (1760-2816) /uL [place] # (Auto) 900 (0-900) /uL Eos # (Auto) 0 (0-450) /uL Baso # (Auto) 0 (0-100) /uL Sodium 136 L (137-145) mmol/L Potassium 3.7 (3.4-5.1) mmol/L Chloride 100 (98-107) mmol/L Carbon Dioxide 25 (22-32) mmol/L BUN 10 (9-20) mg/dL Creatinine 0.74 (0.66-1.25) mg/dL Estimated GFR > 60 (>60) mL/min BUN/Creatinine Ratio 13.5 (6-22) Glucose 140 H (70-100) mg/dL Lactate (0.7-2.1) mmol/L Calcium 8.5 (8.4-10.2) mg/dL Total Bilirubin 0.7 (0.2-1.3) mg/dL AST 32 (17-59) IU/L ALT 35 (<50) IU/L Alkaline Phosphatase 68 (38-126) U/L Total Creatine Kinase 132 (55-170) U/L CK-MB (CK-2) 0.43 (<2.37) ng/mL CK-MB (CK-2) Rel Index 0.3 L (1.5-5.0) % Troponin I < 0.012 (0.01-0.034) ng/mL NT-Pro-B Natriuret Pep 42 (<125) pg/mL Total Protein 7.2 (6.3-8.2) g/dL Albumin 4.2 (3.5-5.0) g/dL Globulin 3.0 (1.7-4.1) g/dL Albumin/Globulin Ratio 1.4 (1.0-2.8) Lipase (23-300) U/L U Opiates 300ng/mL cut (Negative) Ur Oxycodone Screen (Negative) Urine Methadone Screen (Negative) Ur Barbiturates Screen (Negative) U Tricyclic Antidepress (Negative) Ur Phencyclidine Scrn (Negative) Ur Amphetamines Screen (Negative) U Methamphetamines Scrn (Negative) Ur MDMA Scrn (Ecstasy) (Negative) U Benzodiazepines Scrn (Negative) Urine Cocaine Screen (Negative) U Marijuana (THC) Screen (Negative) SARS-CoV-2 (PCR) (Negative) Influenza A (RT-PCR) (NEGATIVE) Influenza B (RT-PCR) (NEGATIVE) RSV (PCR) (Negative) Point of care testing: Urine Dip Bedside Urine Glucose Negative Bedside Urine Bilirubin - Negative Bedside Urine Ketone +/- 5 Urine Specific [place] 1.015 Bedside Urine Occult Blood - Negative Bedside Urine pH 6.0 Bedside Urine Protein - Negative Bedside Urine Urobilinogen - Negative Bedside Urine Nitrite - Negative Bedside Urine Leukocytes - Negative Esterase Imaging Data Chest x-ray: Radiologist's Impression: PROCEDURE:? XR CHEST 1V ? INDICATIONS:? Pneumomediastinum ? TECHNIQUE:? One view of the chest was acquired.? ? COMPARISON:? None. ? FINDINGS:? ? Surgical changes and devices:? None.? ? Lungs and pleura:? Lungs are clear.? No pleural effusions or pneumothorax.? ? Mediastinum:? Mediastinal contours appear normal.? Heart size is normal.? ? Bones and chest wall:? No suspicious bony lesions.? Overlying soft tissues appear unremarkable.? ? IMPRESSION:? No pneumomediastinum or other acute finding. ? ? Dictated by: William Quevedo M.D. on 03/28/2022 at 14:48 ? ? Approved by: William Quevedo M.D. on 03/28/2022 at 14:49 ? CT scan - abdomen/pelvis: Radiologist's Impression: PROCEDURE:? CT CHEST ABDOMEN W CON ? INDICATIONS:? esophageal injury vs gastric? epigastric pain, hx esoph ? TECHNIQUE:? After the administration of intravenous contrast, 5 mm thick sections acquired from the lung apices to the iliac crests.? 5 mm coronal and sagittal reformats were performed, with additional 7 mm coronal MIP reformats through the lungs.? For radiation dose reduction, the following was used:? automated exposure control, adjustment of mA and/or kV according to patient size.? ? COMPARISON:? [facility], XR CHEST 1V, 03/28/2022, 14:06. ? FINDINGS:? Image quality:? Excellent.? ? CHEST:? Lungs and pleura:? No acute airspace opacities.? No pleural effusions or pneumothorax.? Central and peripheral airways appear patent and normal in caliber.? ? Mediastinum:? The distal esophagus appears thickened and mildly dilated.? Soft tissue within the mid to distal esophageal lumen could be retained food debris or mass.? There is lucency around the distal esophagus within the posterior mediastinum above the gastroesophageal junction, consistent with pneumomediastinum.? The findings are suspicious for esophageal tear/contain esophageal perforation. ? Heart size is normal.? No pericardial effusion.? No mediastinal or hilar adenopathy by size criteria.? Thoracic aorta and central pulmonary arteries are normal in size. Chest wall:? No axillary or supraclavicular adenopathy by size criteria.? Thyroid gland is normal .? ? ? ABDOMEN:? Solid organs:? Liver is normal in size and enhancement.? Gallbladder is normal .? Biliary system is non dilated.? Pancreas enhances normally.? Spleen is normal in size and enhancement.? No adrenal nodules.? Kidneys demonstrate normal size and enhancement, without hydronephrosis.? ? Peritoneum and bowel:? There is thickening of the gastroesophageal junction.? Stomach is mildly distended and filled with food debris.? Gastric antrum is thickened and irregular. ?Bowel loops demonstrate normal wall thickness and caliber.? No free fluid or air.? ? Nodes and vessels:? No retroperitoneal or mesenteric adenopathy by size criteria.? Aorta and inferior vena cava are normal in size.? ? Bones:? No suspicious bony lesions.? No vertebral body compression fractures.? ? Miscellaneous:? No ventral hernias.? ? IMPRESSION:? ? 1. There is esophageal dilation and thickening of the mid to distal esophagus, as well as the gastroesophageal junction.? Small pneumomediastinum is present surrounding the esophagus, compatible with esophageal tear/perforation.? ? 2. Soft tissue within the esophageal lumen could be contained fluid debride or mass.? Recommend EGD for follow-up evaluation after adequate treatment.? ? 3. Stomach is mildly distended.? There is irregular thickening of gastric antrum.? Differential diagnosis include peptic ulcer disease versus gastritis.? No free peritoneal air in upper abdomen.? ? ? Dominga Crew was informed of the result. ? Dictated by: Aura Johnson M.D. on 03/28/2022 at 16:00 ? ? Approved by: Aura Johnson M.D. on 03/28/2022 at 16:11 ? US - abdomen: Radiologist's Impression: PROCEDURE: US ABDOMEN LIMITED ? INDICATIONS:? epigastric pain ? TECHNIQUE:? Real-time focused scanning was performed of the abdomen, with image documentation.? ? COMPARISON:? [facility], CT, CT CHEST ABDOMEN W CON, 03/28/2022, 15:30. ? FINDINGS:? Liver is normal in size and echogenicity. ? The gallbladder appears normal without gallstones or gallbladder wall thickening.? There is no pericholecystic fluid.? Sonographic Fitzgerald sign is negative. ? No intrahepatic or extrahepatic biliary ductal dilatation. ? Included portions of the pancreas are unremarkable. ? No free fluid is seen in the right upper quadrant. ? IMPRESSION:? No acute sonographic abnormality in the right upper quadrant.? Normal gallbladder. ?? ? Approved by: Emile Goddard M.D. on 03/28/2022 at 16:17? ECG Data Interpretation: EKG independently reviewed by myself at 1500 reveals sinus arrhythmia at [71] bpm with regular axis and intervals. No STEMI, ST segment changes, arrhythmia, or acute ischemic changes. MDM Narrative Medical decision making narrative: This is a 26-year-old male who presents to the emergency department with esophageal and epigastric pain with sensation of food bolus or injury after patient states he ate a chip with dip. Patient states that he had 1 episode of vomiting 2 nights ago for no reason that he could remember. 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 He was in acute distress when he came in, without vomiting but stated that he was nausea, complained of pain in his epigastrium, did not change much with palpation although was more tender there than anywhere in his abdomen. Airway was patent, patient without any choking or difficulty breathing sensation. Chest x-ray was negative for gross mediastinum. Patient was given a GI cocktail which did not improve his symptoms. Patient leukocytosis of 15.2, no anemia, has a left shift lactate of 2.2, no elevation in liver enzymes or lipase. Respiratory panel negative for tested viruses including COVID and influenza. Call from radiologist during patient's CT imaging of his chest and abdomen for evaluation of esophageal perforation versus mass versus obstruction and radiologist states that there is thickening versus a mass in the esophageal gastric junction with a small amount of air without gross mediastinum. States this is concerning for mass versus esophageal perforation and recommends EGD. Consultation with Dr. Gurrola was attempted at 1607. He called back at 16:48 and stated that he is in surgery, recommends transfer to facility with CT surgery for esophageal perforation. Consultation with transfer center from [facility] regarding patient's case, images were pushed [facility]. 1800 rechecked patient, updated with status, patient's pain is well controlled, he states that he is very anxious and fearful about worst case scenario. Reassured patient, updated the family so they can plan for patient to transfer to outside facility, have not heard back from [facility] or other facilities yet. Patient was given a 2nd dose of lorazepam for his symptoms, receiving a 2 L of fluid, he is tachycardic but his heart rate comes down with reassurance. Patient was treated with pain medication and lorazepam, vital signs improved after discussion with family. Patient's heart rate came down to 122 when I was with him at the bedside, he is receiving a 2 L of IV fluid, this was switched to lactated Ringer's. He is not having any vomiting, his pain is under control. Consultation with CT surgery [facility] at 18:[address] Mims-CT surgery recommends an esophagram and extending coverage with fluconazole and vancomycin in addition to the 4.5 g of Zosyn that he received. Blood cultures were obtained after Zosyn was given. Repeat CBC shows WBC down to 14.1 with no anemia or drop in H&H, still with neutrophilic predominance, lactate came down after 1.5 L of fluid, no elevation of his liver enzymes again, troponin is 0.012, CK is not elevated, BNP is not elevated, urine drug screen is negative, COVID, influenza a, B, and RSV are negative via PCR. Patient was signed out to Adair Mims who has signed patient out to [facility] and they will assume care. 1930 <Adair Mims, DO - Last Filed: 03/30/22 05:50> Lab Data Labs: Lab Results 03/28/22 03/28/2222 Range/Units 11:45 11:45 11:45 WBC 15.2 H (4.5-11.0) X10^3/uL RBC 5.72 (4.5-5.9) X10^6/uL Hgb 16.9 (13.5-17.5) g/dL Hct 49.4 (41-53) % MCV 86.4 (80-100) fL MCH 29.5 (26-34) PG MCHC 34.2 (30-36) % RDW 13.3 (11.6-14.8) % Plt Count 246 (150-400) X10^3/uL Neut % (Auto) 82.2 H (50-75) % Lymph % (Auto) 9.4 L (25-40) % [place] % (Auto) 7.1 (3-14) % Eos % (Auto) 0.9 L (2-4) % Baso % (Auto) 0.4 (0-2) % Neut # (Auto) 40780 H (3637-0960) /uL Lymph # (Auto) 1400 (4884-2554) /uL [place] # (Auto) 1100 H (0-900) /uL Eos # (Auto) 100 (0-450) /uL Baso # (Auto) 100 (0-100) /uL Sodium 139 (137-145) mmol/L Potassium 3.8 (3.4-5.1) mmol/L Chloride 98 (98-107) mmol/L Carbon Dioxide 30 (22-32) mmol/L BUN 11 (9-20) mg/dL Creatinine 0.78 (0.66-1.25) mg/dL Estimated GFR > 60 (>60) mL/min BUN/Creatinine Ratio 14.1 (6-22) Glucose 118 H (70-100) mg/dL Lactate 2.2 H (0.7-2.1) mmol/L Calcium 9.4 (8.4-10.2) mg/dL Total Bilirubin 0.4 (0.2-1.3) mg/dL AST 33 (17-59) IU/L ALT 37 (<50) IU/L Alkaline Phosphatase 81 (38-126) U/L Total Creatine Kinase (55-170) U/L CK-MB (CK-2) (<2.37) ng/mL CK-MB (CK-2) Rel Index (1.5-5.0) % Troponin I (0.01-0.034) ng/mL NT-Pro-B Natriuret Pep (<125) pg/mL Total Protein 8.1 (6.3-8.2) g/dL Albumin 4.7 (3.5-5.0) g/dL Globulin 3.4 (1.7-4.1) g/dL Albumin/Globulin Ratio 1.4 (1.0-2.8) Lipase 45 (23-300) U/L U Opiates 300ng/mL cut (Negative) Ur Oxycodone Screen (Negative) Urine Methadone Screen (Negative) Ur Barbiturates Screen (Negative) U Tricyclic Antidepress (Negative) Ur Phencyclidine Scrn (Negative) Ur Amphetamines Screen (Negative) U Methamphetamines Scrn (Negative) Ur MDMA Scrn (Ecstasy) (Negative) U Benzodiazepines Scrn (Negative) Urine Cocaine Screen (Negative) U Marijuana (THC) Screen (Negative) SARS-CoV-2 (PCR) (Negative) Influenza A (RT-PCR) (NEGATIVE) Influenza B (RT-PCR) (NEGATIVE) RSV (PCR) (Negative) 03/28/22 03/28/22 03/28/22 Range/Units 15:26 17:11 18:15 WBC (4.5-11.0) X10^3/uL RBC (4.5-5.9) X10^6/uL Hgb (13.5-17.5) g/dL Hct (41-53) % MCV (80-100) fL MCH (26-34) PG MCHC (30-36) % RDW (11.6-14.8) % Plt Count (150-400) X10^3/uL Neut % (Auto) (50-75) % Lymph % (Auto) (25-40) % [place] % (Auto) (3-14) % Eos % (Auto) (2-4) % Baso % (Auto) (0-2) % Neut # (Auto) (7508-9930) /uL Lymph # (Auto) (3037-8703) /uL [place] # (Auto) (0-900) /uL Eos # (Auto) (0-450) /uL Baso # (Auto) (0-100) /uL Sodium (137-145) mmol/L Potassium (3.4-5.1) mmol/L Chloride (98-107) mmol/L Carbon Dioxide (22-32) mmol/L BUN (9-20) mg/dL Creatinine (0.66-1.25) mg/dL Estimated GFR (>60) mL/min BUN/Creatinine Ratio (6-22) Glucose (70-100) mg/dL Lactate 2.1 (0.7-2.1) mmol/L Calcium (8.4-10.2) mg/dL Total Bilirubin (0.2-1.3) mg/dL AST (17-59) IU/L ALT (<50) IU/L Alkaline Phosphatase (38-126) U/L Total Creatine Kinase (55-170) U/L CK-MB (CK-2) (<2.37) ng/mL CK-MB (CK-2) Rel Index (1.5-5.0) % Troponin I (0.01-0.034) ng/mL NT-Pro-B Natriuret Pep (<125) pg/mL Total Protein (6.3-8.2) g/dL Albumin (3.5-5.0) g/dL Globulin (1.7-4.1) g/dL Albumin/Globulin Ratio (1.0-2.8) Lipase (23-300) U/L U Opiates 300ng/mL cut Negative (Negative) Ur Oxycodone Screen Negative (Negative) Urine Methadone Screen Negative (Negative) Ur Barbiturates Screen Negative (Negative) U Tricyclic Antidepress Negative (Negative) Ur Phencyclidine Scrn Negative (Negative) Ur Amphetamines Screen Negative (Negative) U Methamphetamines Scrn Negative (Negative) Ur MDMA Scrn (Ecstasy) Negative (Negative) U Benzodiazepines Scrn Negative (Negative) Urine Cocaine Screen Negative (Negative) U Marijuana (THC) Screen Negative (Negative) SARS-CoV-2 (PCR) Negative (Negative) Influenza A (RT-PCR) Flu a negative (NEGATIVE) Influenza B (RT-PCR) Flu b negative (NEGATIVE) RSV (PCR) Negative (Negative) 03/28/22 03/28/22 03/28/22 Range/Units 18:15 18:15 18:15 WBC 14.1 H (4.5-11.0) X10^3/uL RBC 5.32 (4.5-5.9) X10^6/uL Hgb 15.9 (13.5-17.5) g/dL Hct 45.9 (41-53) % MCV 86.2 (80-100) fL MCH 29.9 (26-34) PG MCHC 34.7 (30-36) % RDW 13.3 (11.6-14.8) % Plt Count 222 (150-400) X10^3/uL Neut % (Auto) 88.6 H (50-75) % Lymph % (Auto) 4.7 L (25-40) % [place] % (Auto) 6.5 (3-14) % Eos % (Auto) 0.1 L (2-4) % Baso % (Auto) 0.1 (0-2) % Neut # (Auto) 78946 H (4143-9685) /uL Lymph # (Auto) 700 L (8267-9465) /uL [place] # (Auto) 900 (0-900) /uL Eos # (Auto) 0 (0-450) /uL Baso # (Auto) 0 (0-100) /uL Sodium 136 L (137-145) mmol/L Potassium 3.7 (3.4-5.1) mmol/L Chloride 100 (98-107) mmol/L Carbon Dioxide 25 (22-32) mmol/L BUN 10 (9-20) mg/dL Creatinine 0.74 (0.66-1.25) mg/dL Estimated GFR > 60 (>60) mL/min BUN/Creatinine Ratio 13.5 (6-22) Glucose 140 H (70-100) mg/dL Lactate (0.7-2.1) mmol/L Calcium 8.5 (8.4-10.2) mg/dL Total Bilirubin 0.7 (0.2-1.3) mg/dL AST 32 (17-59) IU/L ALT 35 (<50) IU/L Alkaline Phosphatase 68 (38-126) U/L Total Creatine Kinase 132 (55-170) U/L CK-MB (CK-2) 0.43 (<2.37) ng/mL CK-MB (CK-2) Rel Index 0.3 L (1.5-5.0) % Troponin I < 0.012 (0.01-0.034) ng/mL NT-Pro-B Natriuret Pep 42 (<125) pg/mL Total Protein 7.2 (6.3-8.2) g/dL Albumin 4.2 (3.5-5.0) g/dL Globulin 3.0 (1.7-4.1) g/dL Albumin/Globulin Ratio 1.4 (1.0-2.8) Lipase (23-300) U/L U Opiates 300ng/mL cut (Negative) Ur Oxycodone Screen (Negative) Urine Methadone Screen (Negative) Ur Barbiturates Screen (Negative) U Tricyclic Antidepress (Negative) Ur Phencyclidine Scrn (Negative) Ur Amphetamines Screen (Negative) U Methamphetamines Scrn (Negative) Ur MDMA Scrn (Ecstasy) (Negative) U Benzodiazepines Scrn (Negative) Urine Cocaine Screen (Negative) U Marijuana (THC) Screen (Negative) SARS-CoV-2 (PCR) (Negative) Influenza A (RT-PCR) (NEGATIVE) Influenza B (RT-PCR) (NEGATIVE) RSV (PCR) (Negative) Point of care testing: Urine Dip Bedside Urine Glucose Negative Bedside Urine Bilirubin - Negative Bedside Urine Ketone +/- 5 Urine Specific [place] 1.015 Bedside Urine Occult Blood - Negative Bedside Urine pH 6.0 Bedside Urine Protein - Negative Bedside Urine Urobilinogen - Negative Bedside Urine Nitrite - Negative Bedside Urine Leukocytes - Negative Esterase MDM Narrative Medical decision making narrative: This is a 26-year-old male who presents to the emergency department with esophageal and epigastric pain with sensation of food bolus or injury after patient states he ate a chip with dip. Patient states that he had 1 episode of vomiting 2 nights ago for no reason that he could remember. 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 He was in acute distress when he came in, without vomiting but stated that he was nausea, complained of pain in his epigastrium, did not change much with palpation although was more tender there than anywhere in his abdomen. Airway was patent, patient without any choking or difficulty breathing sensation. Chest x-ray was negative for gross mediastinum. Patient was given a GI cocktail which did not improve his symptoms. Patient leukocytosis of 15.2, no anemia, has a left shift lactate of 2.2, no elevation in liver enzymes or lipase. Respiratory panel negative for tested viruses including COVID and influenza. Call from radiologist during patient's CT imaging of his chest and abdomen for evaluation of esophageal perforation versus mass versus obstruction and radiologist states that there is thickening versus a mass in the esophageal gastric junction with a small amount of air without gross mediastinum. States this is concerning for mass versus esophageal perforation and recommends EGD. Consultation with Dr. Gurrola was attempted at 1607. He called back at 16:48 and stated that he is in surgery, recommends transfer to facility with CT surgery for esophageal perforation. Consultation with transfer center from [facility] regarding patient's case, images were pushed [facility]. 1800 rechecked patient, updated with status, patient's pain is well controlled, he states that he is very anxious and fearful about worst case scenario. Reassured patient, updated the family so they can plan for patient to transfer to outside facility, have not heard back from [facility] or other facilities yet. Patient was given a 2nd dose of lorazepam for his symptoms, receiving a 2 L of fluid, he is tachycardic but his heart rate comes down with reassurance. Patient was treated with pain medication and lorazepam, vital signs improved after discussion with family. Patient's heart rate came down to 122 when I was with him at the bedside, he is receiving a 2 L of IV fluid, this was switched to lactated Ringer's. He is not having any vomiting, his pain is under control. Consultation with CT surgery [facility] at 18:[address] Mims-CT surgery recommends an esophagram and extending coverage with fluconazole and vancomycin in addition to the 4.5 g of Zosyn that he received. Blood cultures were obtained after Zosyn was given. Repeat CBC shows WBC down to 14.1 with no anemia or drop in H&H, still with neutrophilic predominance, lactate came down after 1.5 L of fluid, no elevation of his liver enzymes again, troponin is 0.012, CK is not elevated, BNP is not elevated, urine drug screen is negative, COVID, influenza a, B, and RSV are negative via PCR. Patient was signed out to Adair Mims who has signed patient out to Ashleigh Mcrae and they will assume care. Martha Mcrae 03/28/22 7pm Patient signed out to me by Dr. Mims. I have actually seen evaluated patient myself he has noted to have an increasing heart rate despite IV fluids antianxiety medicine and pain medication. Upon my evaluation patient is very calm does not appear anxious he is denying any pain. He has no shortness of breath. There is pneumomediastinum. It was recommended that patient have an esophagram. Unfortunately this test is not available at night at any facility, he will likely need to be transferred but not emergently at this time. He will need this test as well. Who was recommended that if his heart rate continues to rise or if he is decompensating then he can be transferred but unfortunately not yet Throughout the night patient's heart rate actually came slowly down to below 100. He has been sleeping. Around 4:00 a.m. started complaining of more pain. He is given pain medicine. Patient is signed back out to Dr. Mims. [0700] 03/29/22 (Prasanna) Patient received in sign out from [Thor]. I have reviewed the clinical course and performed an independent history and physical exam. No issues overnight, esophagram ordered for this morning Patient admittedly feeling much better pain improved, no nausea, vital signs stable, no fever, chest pain or shortness of breath he does still have some achy pain in his epigastrium 1030 -call from Radiology, no evidence of perforation on esophagram, there is some thickening of the esophagus of the distal 3rd, consider esophagitis versus sequela from esophageal injury. Discussed with Dr. Byrne of General surgery, no indication for immediate endoscopy, recommends clear liquids, return precautions and follow-up for EGD upon arrival back in [place]. Recommends discussion with CT at again 1045 - call to CT. Images pushed. <Ashleigh Mcrae, DO - Last Filed: 04/01/22 07:13> Lab Data Labs: Lab Results 03/28/22 03/28/22 03/28/22 Range/Units 11:45 11:45 11:45 WBC 15.2 H (4.5-11.0) X10^3/uL RBC 5.72 (4.5-5.9) X10^6/uL Hgb 16.9 (13.5-17.5) g/dL Hct 49.4 (41-53) % MCV 86.4 (80-100) fL MCH 29.5 (26-34) PG MCHC 34.2 (30-36) % RDW 13.3 (11.6-14.8) % Plt Count 246 (150-400) X10^3/uL Neut % (Auto) 82.2 H (50-75) % Lymph % (Auto) 9.4 L (25-40) % [place] % (Auto) 7.1 (3-14) % Eos % (Auto) 0.9 L (2-4) % Baso % (Auto) 0.4 (0-2) % Neut # (Auto) 27214 H (4774-3571) /uL Lymph # (Auto) 1400 (4817-4452) /uL [place] # (Auto) 1100 H (0-900) /uL Eos # (Auto) 100 (0-450) /uL Baso # (Auto) 100 (0-100) /uL Sodium 139 (137-145) mmol/L Potassium 3.8 (3.4-5.1) mmol/L Chloride 98 (98-107) mmol/L Carbon Dioxide 30 (22-32) mmol/L BUN 11 (9-20) mg/dL Creatinine 0.78 (0.66-1.25) mg/dL Estimated GFR > 60 (>60) mL/min BUN/Creatinine Ratio 14.1 (6-22) Glucose 118 H (70-100) mg/dL Lactate 2.2 H (0.7-2.1) mmol/L Calcium 9.4 (8.4-10.2) mg/dL Total Bilirubin 0.4 (0.2-1.3) mg/dL AST 33 (17-59) IU/L ALT 37 (<50) IU/L Alkaline Phosphatase 81 (38-126) U/L Total Creatine Kinase (55-170) U/L CK-MB (CK-2) (<2.37) ng/mL CK-MB (CK-2) Rel Index (1.5-5.0) % Troponin I (0.01-0.034) ng/mL NT-Pro-B Natriuret Pep (<125) pg/mL Total Protein 8.1 (6.3-8.2) g/dL Albumin 4.7 (3.5-5.0) g/dL Globulin 3.4 (1.7-4.1) g/dL Albumin/Globulin Ratio 1.4 (1.0-2.8) Lipase 45 (23-300) U/L U Opiates 300ng/mL cut (Negative) Ur Oxycodone Screen (Negative) Urine Methadone Screen (Negative) Ur Barbiturates Screen (Negative) U Tricyclic Antidepress (Negative) Ur Phencyclidine Scrn (Negative) Ur Amphetamines Screen (Negative) U Methamphetamines Scrn (Negative) Ur MDMA Scrn (Ecstasy) (Negative) U Benzodiazepines Scrn (Negative) Urine Cocaine Screen (Negative) U Marijuana (THC) Screen (Negative) SARS-CoV-2 (PCR) (Negative) Influenza A (RT-PCR) (NEGATIVE) Influenza B (RT-PCR) (NEGATIVE) RSV (PCR) (Negative) 03/28/22 03/28/22 03/28/22 Range/Units 15:26 17:11 18:15 WBC (4.5-11.0) X10^3/uL RBC (4.5-5.9) X10^6/uL Hgb (13.5-17.5) g/dL Hct (41-53) % MCV (80-100) fL MCH (26-34) PG MCHC (30-36) % RDW (11.6-14.8) % Plt Count (150-400) X10^3/uL Neut % (Auto) (50-75) % Lymph % (Auto) (25-40) % [place] % (Auto) (3-14) % Eos % (Auto) (2-4) % Baso % (Auto) (0-2) % Neut # (Auto) (1271-8356) /uL Lymph # (Auto) (1465-8557) /uL [place] # (Auto) (0-900) /uL Eos # (Auto) (0-450) /uL Baso # (Auto) (0-100) /uL Sodium (137-145) mmol/L Potassium (3.4-5.1) mmol/L Chloride (98-107) mmol/L Carbon Dioxide (22-32) mmol/L BUN (9-20) mg/dL Creatinine (0.66-1.25) mg/dL Estimated GFR (>60) mL/min BUN/Creatinine Ratio (6-22) Glucose (70-100) mg/dL Lactate 2.1 (0.7-2.1) mmol/L Calcium (8.4-10.2) mg/dL Total Bilirubin (0.2-1.3) mg/dL AST (17-59) IU/L ALT (<50) IU/L Alkaline Phosphatase (38-126) U/L Total Creatine Kinase (55-170) U/L CK-MB (CK-2) (<2.37) ng/mL CK-MB (CK-2) Rel Index (1.5-5.0) % Troponin I (0.01-0.034) ng/mL NT-Pro-B Natriuret Pep (<125) pg/mL Total Protein (6.3-8.2) g/dL Albumin (3.5-5.0) g/dL Globulin (1.7-4.1) g/dL Albumin/Globulin Ratio (1.0-2.8) Lipase (23-300) U/L U Opiates 300ng/mL cut Negative (Negative) Ur Oxycodone Screen Negative (Negative) Urine Methadone Screen Negative (Negative) Ur Barbiturates Screen Negative (Negative) U Tricyclic Antidepress Negative (Negative) Ur Phencyclidine Scrn Negative (Negative) Ur Amphetamines Screen Negative (Negative) U Methamphetamines Scrn Negative (Negative) Ur MDMA Scrn (Ecstasy) Negative (Negative) U Benzodiazepines Scrn Negative (Negative) Urine Cocaine Screen Negative (Negative) U Marijuana (THC) Screen Negative (Negative) SARS-CoV-2 (PCR) Negative (Negative) Influenza A (RT-PCR) Flu a negative (NEGATIVE) Influenza B (RT-PCR) Flu b negative (NEGATIVE) RSV (PCR) Negative (Negative) 03/28/22 03/28/22 03/28/22 Range/Units 18:15 18:15 18:15 WBC 14.1 H (4.5-11.0) X10^3/uL RBC 5.32 (4.5-5.9) X10^6/uL Hgb 15.9 (13.5-17.5) g/dL Hct 45.9 (41-53) % MCV 86.2 (80-100) fL MCH 29.9 (26-34) PG MCHC 34.7 (30-36) % RDW 13.3 (11.6-14.8) % Plt Count 222 (150-400) X10^3/uL Neut % (Auto) 88.6 H (50-75) % Lymph % (Auto) 4.7 L (25-40) % [place] % (Auto) 6.5 (3-14) % Eos % (Auto) 0.1 L (2-4) % Baso % (Auto) 0.1 (0-2) % Neut # (Auto) 58886 H (2935-0899) /uL Lymph # (Auto) 700 L (8235-6814) /uL [place] # (Auto) 900 (0-900) /uL Eos # (Auto) 0 (0-450) /uL Baso # (Auto) 0 (0-100) /uL Sodium 136 L (137-145) mmol/L Potassium 3.7 (3.4-5.1) mmol/L Chloride 100 (98-107) mmol/L Carbon Dioxide 25 (22-32) mmol/L BUN 10 (9-20) mg/dL Creatinine 0.74 (0.66-1.25) mg/dL Estimated GFR > 60 (>60) mL/min BUN/Creatinine Ratio 13.5 (6-22) Glucose 140 H (70-100) mg/dL Lactate (0.7-2.1) mmol/L Calcium 8.5 (8.4-10.2) mg/dL Total Bilirubin 0.7 (0.2-1.3) mg/dL AST 32 (17-59) IU/L ALT 35 (<50) IU/L Alkaline Phosphatase 68 (38-126) U/L Total Creatine Kinase 132 (55-170) U/L CK-MB (CK-2) 0.43 (<2.37) ng/mL CK-MB (CK-2) Rel Index 0.3 L (1.5-5.0) % Troponin I < 0.012 (0.01-0.034) ng/mL NT-Pro-B Natriuret Pep 42 (<125) pg/mL Total Protein 7.2 (6.3-8.2) g/dL Albumin 4.2 (3.5-5.0) g/dL Globulin 3.0 (1.7-4.1) g/dL Albumin/Globulin Ratio 1.4 (1.0-2.8) Lipase (23-300) U/L U Opiates 300ng/mL cut (Negative) Ur Oxycodone Screen (Negative) Urine Methadone Screen (Negative) Ur Barbiturates Screen (Negative) U Tricyclic Antidepress (Negative) Ur Phencyclidine Scrn (Negative) Ur Amphetamines Screen (Negative) U Methamphetamines Scrn (Negative) Ur MDMA Scrn (Ecstasy) (Negative) U Benzodiazepines Scrn (Negative) Urine Cocaine Screen (Negative) U Marijuana (THC) Screen (Negative) SARS-CoV-2 (PCR) (Negative) Influenza A (RT-PCR) (NEGATIVE) Influenza B (RT-PCR) (NEGATIVE) RSV (PCR) (Negative) Point of care testing: Urine Dip Bedside Urine Glucose Negative Bedside Urine Bilirubin - Negative Bedside Urine Ketone +/- 5 Urine Specific [place] 1.015 Bedside Urine Occult Blood - Negative Bedside Urine pH 6.0 Bedside Urine Protein - Negative Bedside Urine Urobilinogen - Negative Bedside Urine Nitrite - Negative Bedside Urine Leukocytes - Negative Esterase MDM Narrative Medical decision making narrative: This is a 26-year-old male who presents to the emergency department with esophageal and epigastric pain with sensation of food bolus or injury after patient states he ate a chip with dip. Patient states that he had 1 episode of vomiting 2 nights ago for no reason that he could remember. 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 He was in acute distress when he came in, without vomiting but stated that he was nausea, complained of pain in his epigastrium, did not change much with palpation although was more tender there than anywhere in his abdomen. Airway was patent, patient without any choking or difficulty breathing sensation. Chest x-ray was negative for gross mediastinum. Patient was given a GI cocktail which did not improve his symptoms. Patient leukocytosis of 15.2, no anemia, has a left shift lactate of 2.2, no elevation in liver enzymes or lipase. Respiratory panel negative for tested viruses including COVID and influenza. Call from radiologist during patient's CT imaging of his chest and abdomen for evaluation of esophageal perforation versus mass versus obstruction and radiologist states that there is thickening versus a mass in the esophageal gastric junction with a small amount of air without gross mediastinum. States this is concerning for mass versus esophageal perforation and recommends EGD. Consultation with Dr. Gurrola was attempted at 1607. He called back at 16:48 and stated that he is in surgery, recommends transfer to facility with CT surgery for esophageal perforation. Consultation with transfer center from [facility] regarding patient's case, images were pushed [facility]. 1800 rechecked patient, updated with status, patient's pain is well controlled, he states that he is very anxious and fearful about worst case scenario. Reassured patient, updated the family so they can plan for patient to transfer to outside facility, have not heard back from [facility] or other facilities yet. Patient was given a 2nd dose of lorazepam for his symptoms, receiving a 2 L of fluid, he is tachycardic but his heart rate comes down with reassurance. Patient was treated with pain medication and lorazepam, vital signs improved after discussion with family. Patient's heart rate came down to 122 when I was with him at the bedside, he is receiving a 2 L of IV fluid, this was switched to lactated Ringer's. He is not having any vomiting, his pain is under control. Consultation with CT surgery [facility] at 18:[address] Mims-CT surgery recommends an esophagram and extending coverage with fluconazole and vancomycin in addition to the 4.5 g of Zosyn that he received. Blood cultures were obtained after Zosyn was given. Repeat CBC shows WBC down to 14.1 with no anemia or drop in H&H, still with neutrophilic predominance, lactate came down after 1.5 L of fluid, no elevation of his liver enzymes again, troponin is 0.012, CK is not elevated, BNP is not elevated, urine drug screen is negative, COVID, influenza a, B, and RSV are negative via PCR. Patient was signed out to Adair Mims who has signed patient out to Ashleigh Mcrae and they will assume care. Parveen Thor 03/28/22 7pm Patient signed out to me by Dr. Mims. I have actually seen evaluated patient myself he has noted to have an increasing heart rate despite IV fluids antianxiety medicine and pain medication. Upon my evaluation patient is very calm does not appear anxious he is denying any pain. He has no shortness of breath. There is pneumomediastinum. It was recommended that patient have an esophagram. Unfortunately this test is not available at night at any facility, he will likely need to be transferred but not emergently at this time. He will need this test as well. Who was recommended that if his heart rate continues to rise or if he is decompensating then he can be transferred but unfortunately not yet Throughout the night patient's heart rate actually came slowly down to below 100. He has been sleeping. Around 4:00 a.m. started complaining of more pain. He is given pain medicine. Patient is signed back out to Dr. Mims. <Adair Mims, DO - Last Filed: 03/30/22 05:50> Critical Care Time Critical Care Time: Yes Total Critical Care Time: 60 Attestation: The high probability of a clinically significant, sudden or life threatening deterioration of the [GI] system(s) required my full and direct attention, intervention and personal management. The aggregate critical care time was [60] minutes. This time is in addition to time spent performing reported procedures but includes the following: [x] Data Review and interpretation [x] Patient assessment and monitoring of vital signs [x] Documentation [x] Medication orders and management Discharge Plan Departure Patient Disposition: Home Clinical Impression: Pneumomediastinum, Abdominal pain, epigastric Instructions: DI for Esophageal Stricture Activity Restrictions/Additional Instructions: *You have been diagnosed with [esophageal perforation resolved] *What to do: *Please continue to take your regular medications as directed. [x ] New medication prescriptions sent to your pharmacy: [facility] ] [ ] New medication written as a paper prescription [ ] No new medications given *Please follow up with your [facility] when you return to [place], please call ahead of time, let them know that you were seen in the emergency department so they made obtain the records *Return to Emergency Department if you should have any new, worsening, or concerning symptoms, such as [fever greater than 101F, chills, worsening pain, persistent vomiting or other bothersome symptoms]. You have been prescribed a short course of narcotic medications. These are potentially dangerous and addictive medications that should be used carefully. While on these medications you cannot drive or operate heavy machinery. Additionally, you cannot sign legal documents or perform any duties such as this. Many people get constipated on narcotic medications so it would be advisable to discuss stool softeners with the pharmacist when you seed cone picker your prescription. Please understand that we cannot provide further refills of narcotics or controlled substances through the ED and your pain management will need to be through your Primary Care Provider Prescriptions: New hydrocodone-acetaminophen 5-325 mg tablet 1 tab PO Q4-6H PRN (Reason: pain) Qty: 20 0RF ondansetron 4 mg tablet,disintegrating 4 mg PO TID-QID PRN (Reason: nausea and vomiting) Qty: 10 0RF Referrals: [facility] [Provider Group] (Please follow-up with for endoscopy and or for surgical need) Miscellaneous,Doctor, MD [Primary Care Provider] - Visit Report Forms: Patient Portal/API
[2022-03-28] MEDS: MAG HYDROX/ALUMINUM/SIMETH SUS 20 ML, LIDOCAINE VISCOUS 2% 15 ML PO (13:47)
--- NOTE | 2022-03-28 13:56 | DI.US.S_ITS ---
PROCEDURE: US ABDOMEN LIMITED INDICATIONS: epigastric pain TECHNIQUE: Real-time focused scanning was performed of the abdomen, with image documentation. COMPARISON: [facility], CT, CT CHEST ABDOMEN W CON, 03/28/2022, 15:30. FINDINGS: Liver is normal in size and echogenicity. The gallbladder appears normal without gallstones or gallbladder wall thickening. There is no pericholecystic fluid. Sonographic Fitzgerald sign is negative. No intrahepatic or extrahepatic biliary ductal dilatation. Included portions of the pancreas are unremarkable. No free fluid is seen in the right upper quadrant. IMPRESSION: No acute sonographic abnormality in the right upper quadrant. Normal gallbladder. Approved by: Emile Goddard M.D. on 03/28/2022 at 16:17
--- NOTE | 2022-03-28 13:56 | DI.RAD.S_ITS ---
PROCEDURE: XR CHEST 1V INDICATIONS: Pneumomediastinum TECHNIQUE: One view of the chest was acquired. COMPARISON: None. FINDINGS: Surgical changes and devices: None. Lungs and pleura: Lungs are clear. No pleural effusions or pneumothorax. Mediastinum: Mediastinal contours appear normal. Heart size is normal. Bones and chest wall: No suspicious bony lesions. Overlying soft tissues appear unremarkable. IMPRESSION: No pneumomediastinum or other acute finding. Dictated by: William Quevedo M.D. on 03/28/2022 at 14:48 Approved by: William Quevedo M.D. on 03/28/2022 at 14:49
[2022-03-28] MEDS: LORazepam 2 MG/ML INJ 1 MG IV ×2 (15:02→17:58)
[2022-03-28] MEDS: PANTOPRAZOLE 40 MG VIAL IV (15:02)
[2022-03-28] MEDS: HYDROMORPHONE 1 MG INJ IV ×2 (15:02→17:24)
[2022-03-28] MEDS: SODIUM CHLORIDE 0.9% 1,000 ML 1000 ML IV ×2 (15:03→17:28)
[2022-03-28 15:06] LABS: Add Manual Diff / Slide Review NO; Basophils Absolute Auto 100 /uL (0-100); Basophils Percent Auto 0.4 % (0-2); Eosinophils Absolute Auto 100 /uL (0-450); Eosinophils Percent Auto 0.9 % (2-4); Hematocrit 49.4 % (41-53); Hemoglobin 16.9 g/dL (13.5-17.5); Lymphocytes Absolute Auto 1400 /uL (1100-4500); Lymphocytes Percent Auto 9.4 % (25-40); Mean Corpuscular HGB Conc 34.2 % (30-36); Mean Corpuscular Hemoglobin 29.5 PG (26-34); Mean Corpuscular Volume 86.4 fL (80-100); Monocytes Absolute Auto 1100 /uL (0-900); Monocytes Percent Auto 7.1 % (3-14); Neutrophils Absolute Auto 12500 /uL (1500-7000); Neutrophils Percent Auto 82.2 % (50-75); Platelet Count 246 X10^3/uL (150-400); Red Blood Cell Count 5.72 X10^6/uL (4.5-5.9); Red Cell Distribution Width 13.3 % (11.6-14.8); White Blood Cell Count 15.2 X10^3/uL (4.5-11.0)
--- NOTE | 2022-03-28 15:14 | DI.CT.S_ITS ---
PROCEDURE: CT CHEST ABDOMEN W CON INDICATIONS: esophageal injury vs gastric? epigastric pain, hx esoph TECHNIQUE: After the administration of intravenous contrast, 5 mm thick sections acquired from the lung apices to the iliac crests. 5 mm coronal and sagittal reformats were performed, with additional 7 mm coronal MIP reformats through the lungs. For radiation dose reduction, the following was used: automated exposure control, adjustment of mA and/or kV according to patient size. COMPARISON: [facility], CR, XR CHEST 1V, 03/28/2022, 14:06. FINDINGS: Image quality: Excellent. CHEST: Lungs and pleura: No acute airspace opacities. No pleural effusions or pneumothorax. Central and peripheral airways appear patent and normal in caliber. Mediastinum: The distal esophagus appears thickened and mildly dilated. Soft tissue within the mid to distal esophageal lumen could be retained food debris or mass. There is lucency around the distal esophagus within the posterior mediastinum above the gastroesophageal junction, consistent with pneumomediastinum. The findings are suspicious for esophageal tear/contain esophageal perforation. Heart size is normal. No pericardial effusion. No mediastinal or hilar adenopathy by size criteria. Thoracic aorta and central pulmonary arteries are normal in size. Chest wall: No axillary or supraclavicular adenopathy by size criteria. Thyroid gland is normal . ABDOMEN: Solid organs: Liver is normal in size and enhancement. Gallbladder is normal . Biliary system is non dilated. Pancreas enhances normally. Spleen is normal in size and enhancement. No adrenal nodules. Kidneys demonstrate normal size and enhancement, without hydronephrosis. Peritoneum and bowel: There is thickening of the gastroesophageal junction. Stomach is mildly distended and filled with food debris. Gastric antrum is thickened and irregular. Bowel loops demonstrate normal wall thickness and caliber. No free fluid or air. Nodes and vessels: No retroperitoneal or mesenteric adenopathy by size criteria. Aorta and inferior vena cava are normal in size. Bones: No suspicious bony lesions. No vertebral body compression fractures. Miscellaneous: No ventral hernias. IMPRESSION: 1. There is esophageal dilation and thickening of the mid to distal esophagus, as well as the gastroesophageal junction. Small pneumomediastinum is present surrounding the esophagus, compatible with esophageal tear/perforation. 2. Soft tissue within the esophageal lumen could be contained fluid debride or mass. Recommend EGD for follow-up evaluation after adequate treatment. 3. Stomach is mildly distended. There is irregular thickening of gastric antrum. Differential diagnosis include peptic ulcer disease versus gastritis. No free peritoneal air in upper abdomen. Dominga Crew was informed of the result. Dictated by: Aura Johnson M.D. on 03/28/2022 at 16:00 Approved by: Aura Johnson M.D. on 03/28/2022 at 16:11
[2022-03-28 15:19] LABS: Lactate (Lactic Acid) 2.2 mmol/L (0.7-2.1)
[2022-03-28 15:20] LABS: Alanine Aminotransferase 37 IU/L (<50); Albumin 4.7 g/dL (3.5-5.0); Albumin Globulin Ratio 1.4 (1.0-2.8); Alkaline Phosphatase 81 U/L (38-126); Aspartate Aminotransferase 33 IU/L (17-59); BUN Creatinine Ratio 14.1 (6-22); Bilirubin Total 0.4 mg/dL (0.2-1.3); Blood Urea Nitrogen 11 mg/dL (9-20); Calcium 9.4 mg/dL (8.4-10.2); Carbon Dioxide 30 mmol/L (22-32); Chloride 98 mmol/L (98-107); Estimated Glomerular Filt Rate > 60 mL/min (>60); Globulin 3.4 g/dL (1.7-4.1); Glucose 118 mg/dL (70-100); HEMOLYSIS 15 (0-50); Lipase 45 U/L (23-300); Potassium 3.8 mmol/L (3.4-5.1); Sodium 139 mmol/L (137-145); Total Protein 8.1 g/dL (6.3-8.2)
[2022-03-28] MEDS: ONDANSETRON 4 MG/2 ML INJ IV (15:30)
[2022-03-28 16:07] LABS: Influenza A - CEPHEID Flu A NEGATIVE (NEGATIVE); Influenza B - CEPHEID Flu B NEGATIVE (NEGATIVE); Respiratory Syncytial Virus Negative (Negative)
[2022-03-28 16:09] LABS: COVID-19 CEPHEID 4-PLEX PCR Negative (Negative)
[2022-03-28] MEDS: PIPERACILLIN/TAZO 4.5 GM in SODIUM CHLORIDE 0.9% 100 ML IV (16:20)
[2022-03-28] MEDS: HYDROMORPHONE 0.5 MG INJ IV (16:21)
[2022-03-28] MEDS: KETOROLAC 30 MG/ML VIAL 15 MG IV (16:21)
[2022-03-28 17:01] LABS: Reflexed Lactate in 2 Hours Y
--- NOTE | 2022-03-28 17:12 | PC.NURSE ---
Informed provider of sustained increased heart rate for this patient in the 130's. No new orders given at this time.
[2022-03-28 17:23] LABS: UR Morphine/Opiate cutoff 300 Negative (Negative); Ur Creatinine Normal (Normal); Ur Specific Gravity Normal (Normal); Urine Amphetamines Negative (Negative); Urine Barbiturates Negative (Negative); Urine Benzodiazepines Negative (Negative); Urine Cocaine Negative (Negative); Urine MDMA Negative (Negative); Urine Methadone Negative (Negative); Urine Methamphetamines Negative (Negative); Urine Oxycodone Negative (Negative); Urine Phencyclidine Negative (Negative); Urine Tetrahydrocannabinol Negative (Negative); Urine Tricyclic Antidepressant Negative (Negative); Urine pH Normal (Normal)
[2022-03-28] MEDS: LACTATED RINGERS 1,000 ML 1000 ML IV (18:03)
[2022-03-28 18:38] LABS: Add Manual Diff / Slide Review NO; Basophils Absolute Auto 0 /uL (0-100); Basophils Percent Auto 0.1 % (0-2); Eosinophils Absolute Auto 0 /uL (0-450); Eosinophils Percent Auto 0.1 % (2-4); Hematocrit 45.9 % (41-53); Hemoglobin 15.9 g/dL (13.5-17.5); Lymphocytes Absolute Auto 700 /uL (1100-4500); Lymphocytes Percent Auto 4.7 % (25-40); Mean Corpuscular HGB Conc 34.7 % (30-36); Mean Corpuscular Hemoglobin 29.9 PG (26-34); Mean Corpuscular Volume 86.2 fL (80-100); Monocytes Absolute Auto 900 /uL (0-900); Monocytes Percent Auto 6.5 % (3-14); Neutrophils Absolute Auto 12500 /uL (1500-7000); Neutrophils Percent Auto 88.6 % (50-75); Platelet Count 222 X10^3/uL (150-400); Red Blood Cell Count 5.32 X10^6/uL (4.5-5.9); Red Cell Distribution Width 13.3 % (11.6-14.8); White Blood Cell Count 14.1 X10^3/uL (4.5-11.0)
[2022-03-28] MEDS: VANCOMYCIN 1,500 MG/300 ML PIGGYBACK 200 MG IV (18:39)
--- NOTE | 2022-03-28 18:45 | PC.NURSE ---
Provider changed order for patient from 2nd bag of normal saline to a liter of lactated ringers after the normal saline had been scanned and hung. Provider notified. Provider stated that it was okay and to give 700ml of the lactated ringers after the amount of normal saline was infused from the second bag.
[2022-03-28 18:53] LABS: Alanine Aminotransferase 35 IU/L (<50); Albumin 4.2 g/dL (3.5-5.0); Albumin Globulin Ratio 1.4 (1.0-2.8); Alkaline Phosphatase 68 U/L (38-126); Aspartate Aminotransferase 32 IU/L (17-59); BUN Creatinine Ratio 13.5 (6-22); Bilirubin Total 0.7 mg/dL (0.2-1.3); Blood Urea Nitrogen 10 mg/dL (9-20); Calcium 8.5 mg/dL (8.4-10.2); Carbon Dioxide 25 mmol/L (22-32); Chloride 100 mmol/L (98-107); Estimated Glomerular Filt Rate > 60 mL/min (>60); Glucose 140 mg/dL (70-100); HEMOLYSIS < 15 (0-50); Potassium 3.7 mmol/L (3.4-5.1); Sodium 136 mmol/L (137-145); Total Protein 7.2 g/dL (6.3-8.2)
[2022-03-28 19:02] LABS: Lactate 2HR (Lactic Acid Rflx) 2.1 mmol/L (0.7-2.1)
[2022-03-28] MEDS: FLUCONAZOLE 200 MG/100 ML PIGGYBACK 100 MG IV (19:02)
[2022-03-28] MEDS: SODIUM CHLORIDE 0.9% 1,000 ML 100 ML IV (19:20)
[2022-03-28 19:24] LABS: Creatine Kinase 132 U/L (55-170)
[2022-03-28 19:38] LABS: NT-proBNP (BNP-Adult 18+) 42 pg/mL (<125); Troponin I < 0.012 ng/mL (0.01-0.034)
[2022-03-28 19:40] LABS: CKMB % Relative Index 0.3 % (1.5-5.0); Creatine Kinase MB 0.43 ng/mL (<2.37)
--- NOTE | 2022-03-28 21:42 | PC.NURSE ---
Patient transferred from [facility] to inpatient hospital bed for comfort.
[2022-03-29] VITALS (52 sets, daily range): BP systolic 97–130; BP diastolic 50–77; PULSE 73–98; RESP 11–26; O2SAT 95–98
[2022-03-29] MEDS: SODIUM CHLORIDE 0.9% 1,000 ML 100 ML IV (05:58)
--- NOTE | 2022-03-29 07:40 | PC.NURSE ---
pt relays Ok to update mother Donna Israel
--- NOTE | 2022-03-29 08:02 | DI.RAD.S_ITS ---
PROCEDURE: ESOPHOGRAM W/O AIR INDICATIONS: Esophageal perforation on CT. The patient had history of esophageal stricture and prior esophageal dilation. COMPARISON: [facility], CT, CT CHEST ABDOMEN W CON, 03/28/2022, 15:30. FINDINGS: Gastrografin contrast was given initially by mouth. The patient was examined under fluoroscopy. The distal esophagus is narrowed consistent with stricture. Proximal to the stricture, there is subtle irregularity of the mid to distal esophagus. No contrast extravasation. Subsequently, thin barium suspension was given and patient was further exam under fluoroscopy. Above findings are again evident with a a stricture in the distal esophagus and mucosal irregularity in the mid to distal esophagus. No definitive barium contrast extravasation. IMPRESSION: 1. No definitive esophageal leak is identified. 2. Stricture in the distal esophagus. No obstruction of liquid oral contrast. 3. Irregularity of the mid to distal esophagitis, consistent with esophagitis or sequelae of remote esophageal injury. The result was discussed with Dr. Mims in ER. Dictated by: Aura Johnson M.D. on 03/29/2022 at 10:12 Approved by: Aura Johnson M.D. on 03/29/2022 at 10:21
--- NOTE | 2022-03-29 08:26 | PC.NURSE ---
vitals updated, documented meditech monitor vitals from pm shift, unable to verify
[2022-03-29] MEDS: HYDROMORPHONE 0.5 MG INJ IV (11:05)
[2022-03-29] MEDS: ONDANSETRON 4 MG/2 ML INJ IV (11:05)
--- NOTE | 2022-03-29 11:20 | PC.NURSE ---
Family in room at bedside asking for update. Dr Mims in room. Advised no esophageal perforation is seen on barium swallow. Plan is to consult with surgery for EGD. Pt pain controlled at this time. No vomiting or nausea this shift thus far.
--- NOTE | 2022-03-29 12:06 | PC.NURSE ---
Patient resting in bed, alert and oriented x4 denies pain, nausea or vomiting. Skin is warm, pink, dry and intact. Patient moving all limbs freely in bed without difficulty, repositioning himself. Bowel sounds present, last BM 03/28/2022 per patient report. Urinal at bedside. Call light in reach. Patient denies any needs at this time.
== END 2022-03-29 13:05 | disposition home or self-care (01) ==
PROVIDERS: Emergency Medicine; Nurse Practitioner Critical Care Medicine; Emergency Provider Emergency Medicine
DX: J98.2 Interstitial emphysema (principal); R10.13 Epigastric pain; Z20.822 Contact with and (suspected) exposure to COVID-19
CPT/HCPCS: 0241U; 36415; 71045; 71260; 74160; 74220; 76705; 80053; 80305; 81003; 82550; 82553; 83605; 83690; 83880; 84484; 85025; 87040; 93005; 93010; 96361; 96365; 96366; 96367; 96368; 96375; 96376; 99284; 99291; C9113; J1170; J1450; J1885; J2060; J2405; J2543; Q9967